=== PATIENT | female | born 1980 | race Caucasian/White ===

== ENCOUNTER 2019-06-26 19:45 | Emergency (ER) | payer MEDICAID ==
[~2019-06-26] VITALS: Ht 149.9 cm; Wt 61.7 kg
[~2019-06-26 19:45] MED LIST: ACET-6134 PO
[2019-06-26 20:04] VITALS: BP 118/60
--- NOTE | 2019-06-26 20:04 | NUR ---
38 Y/O FEMALE C/O LOWER BACK PAIN. DIFFICULTY BREATHING; NO SOB/RESPIRATORY DISTRESS NOTED 97% ROOM AIR 18RR. CLEAR LUNG SOUNDS BILATERALLY (ANT/POST). LOWE BACK PAIN 5/10 NONRADIATING. DENIES N/V/D OR FEVER/CHILLS. ERMD MADE AWARE OF STATUS. VSS. WILL CONTINUE TO MONITOR. PMH:PULMONARY BLOOD CLOTS RX: ENOXAPARIN NKDA
--- NOTE | 2019-06-26 20:04 | NUR ---
PT AMBULATED TO BED #12
[2019-06-26 21:12] LABS: BILIRUBIN,URINE NEGATIVE (NEGATIVE); BLOOD, URINE TRACE-I (NEGATIVE); COLOR,URINE YELLOW (YELLOW); LEUKOCYTE ESTERASE ,URINE 2+ (NEGATIVE); NITRITE, URINE NEGATIVE (NEGATIVE); UGLUCOSE NEGATIVE (NEGATIVE)
[2019-06-26 21:15] LABS: APPEARANCE,URINE HAZY (CLEAR)
[2019-06-26 21:20] LABS: RBC,URINE 0-5 /HPF (0-5)
[2019-06-26 22:08] VITALS: BP 127/68
== END 2019-06-26 22:08 | disposition home or self-care (01) ==
LOC: MED 19:45
DX: O23.42 Unspecified infection of urinary tract in pregnancy, second trimester (principal); O26.892 Other specified pregnancy related conditions, second trimester; M54.9 Dorsalgia, unspecified; Z3A.23 23 weeks gestation of pregnancy; Z98.890 Other specified postprocedural states; Z79.899 Other long term (current) drug therapy
CPT/HCPCS: 81001; 87086; 99283

== ENCOUNTER 2019-12-22 19:35 | Inpatient (IN) | payer MEDICAID, SELFPAY ==
[~2019-12-22] VITALS: Ht 149.9 cm; Wt 59.0 kg
[2019-12-22 19:41] VITALS: BP 121/85
--- NOTE | 2019-12-22 19:49 | NUR ---
PT AMBUALTED TO CHAIR C WITH STEADY GAIT
--- NOTE | 2019-12-22 20:00 | NUR ---
39F PRESENTS TO ED WITH C/O EPIGASTRIC PAIN THAT IS NON RADIATING X 7 HOURS. STATES THAT IT HAS ORIGINALLY STARTED A SMALL PAIN X 2 WEEKS AND HAS PROGRESSIVELY WORSEN. UPON ASSESMENT, PT A/O X4, GCS 15. CBL SOUNDS. RESPIRATIONS EVEN AND UNLABORED. ABDOMEN SOFT AND NONTENDER. +N/V. BOWEL SOUNDS NORMOACTIVE ON ALL QUADRANTS. PT PLACED FOR COMFORT IN [facility] WITH HOB ELEVATED. SAFETY PRECAUTIONS IN PLACE WITH BED LOWEST AND LOCKED, RAILS X 2. ERMD MADE AWARE OF PT STATUS. PMHX: 4 C/SECTION RX: DENIES NKA PT WEARING MASK. NEGATIVE FOR COVID SCREENING
[2019-12-22] MEDS ORDERED: DICYCLOMINE HCL LIQUID 20 MG, ALUMINUM HYD/MAG/SIMETHICONE 30 ML, LIDOCAINE VISCOUS 2% ... PO ONE ×3 (20:05)
[2019-12-22] MEDS ORDERED: KETOROLAC 30 MG/ML VIAL IM ONE (20:05)
[2019-12-22] MEDS ORDERED: LIDOCAINE VISCOUS 2% 20 ML UDC ONE (20:14)
[2019-12-22] MEDS ORDERED: ALUMINUM HYD/MAG/SIMETHICONE 30 ML UDC ONE (20:14)
[2019-12-22] MEDS ORDERED: DICYCLOMINE HCL LIQUID 10 MG/5 ML UDC ONE (20:14)
[2019-12-22 20:18] LABS: BASOPHILS # (AUTO) 0.1 K/uL (0.00-0.22); BASOPHILS % (AUTO) 0.5 % (0.0-2.0); EOSINOPHILS % (AUTO) 0.3 % (0.0-4.0); HEMATOCRIT 41.4 % (36-48); HEMOGLOBIN 13.5 g/dL (12.0-16.0); LYMPHOCYTES % (AUTO) 7.8 % (20.5-51.1); MEAN CORPUSCULAR HEMOGLOBIN 29 pg (27-31); MEAN CORPUSCULAR HGB CONC 33 g/dL (33-37); MEAN CORPUSCULAR VOLUME 88.4 fL (80-94); MONOCYTES # (AUTO) 0.3 K/uL (0.8-1.0); MONOCYTES % (AUTO) 2.6 % (1.7-9.3); NEUTROPHILS # (AUTO) 11.3 K/uL (1.8-7.7); NEUTROPHILS % (AUTO) 88.8 % (42.2-75.2); PLATELET COUNT (AUTO) 370 K/uL (140-450); RED BLOOD CELL COUNT(AUTO) 4.68 MIL/uL (4.20-5.40); RED CELL DISTRIBUTION WIDTH 15.3 % (11.6-13.7); WHITE BLOOD COUNT (AUTO) 12.7 K/uL (4.8-10.8)
--- NOTE | 2019-12-22 20:24 | NUR ---
PT MEDICATED WITH GI COCKTAIL. MEDICATED WITH TORADOL IM TOLERATED WELL. NADR
--- NOTE | 2019-12-22 20:26 | NUR ---
PT AMBULATED TO RESTROOM WITH STEADY GAIT.
[2019-12-22 20:33] LABS: ALBUMIN 4.2 g/dL (3.4-5.0); ANION GAP 14.2 (8-16); CARBON DIOXIDE 28.4 mmol/L (21-32); CREATININE 0.8 mg/dL (0.6-1.3); POTASSIUM 3.6 mmol/L (3.5-5.1); TOTAL BILIRUBIN 3.4 mg/dL (0.0-1.0)
--- NOTE | 2019-12-22 20:36 | NUR ---
PT TAKEN TO ULTRASOUNDS VIA W/C
--- NOTE | 2019-12-22 20:49 | NUR ---
PT RETURNED FROM US.
[2019-12-22] MEDS ORDERED: KETOROLAC 30 MG/ML VIAL IVP ONE (21:00)
[2019-12-22] MEDS ORDERED: NACL 0.9% 2,000 ML IV ONE (21:25)
[2019-12-22 21:26] LABS: PROTHROMBIN TIME 9.9 secs (10.8-13.4)
[2019-12-22] MEDS ORDERED: HYDROcodone/APAP 7.5/325 MG 1 TAB PO PRN (21:35)
[2019-12-22] MEDS ORDERED: ONDANSETRON 4 MG/2 ML VIAL IVP PRN (21:35)
[2019-12-22] MEDS ORDERED: ACETAMINOPHEN 325 MG TAB PO PRN (21:35)
[2019-12-22] MEDS ORDERED: cefTRIAXone 1,000 MG VIAL ONE (21:46)
[2019-12-22 22:06] LABS: APPEARANCE,URINE CLEAR (CLEAR); BILIRUBIN,URINE 2+ (NEGATIVE); BLOOD, URINE 2+ (NEGATIVE); COLOR,URINE DARK YELLOW (YELLOW); LEUKOCYTE ESTERASE ,URINE TRACE (NEGATIVE); NITRITE, URINE NEGATIVE (NEGATIVE); UGLUCOSE TRACE (NEGATIVE)
[2019-12-22 22:10] LABS: FREE T4 (FREE THYROXINE) 1.12 ng/dL (0.76-1.46); PHOSPHORUS 3.4 mg/dL (2.5-4.9); THYROID STIMULATING HORMONE 0.86 uIU/mL (0.34-3.74)
[2019-12-22 22:26] LABS: RBC,URINE 11-20 (MOD) /HPF (0-5)
[2019-12-22 22:29] LABS: HYALINE CASTS, URINE 0-10 /LPF (None Seen)
[2019-12-22 22:38] LABS: BARBITURATE, URINE NEGATIVE ng/ml (NEG <=200); BENZODIAZEPINE, URINE NEGATIVE ng/mL (NEG <=200)
[2019-12-22 22:39] LABS: CANNABINOID, URINE NEGATIVE ng/mL (NEG <=50); COCAINE, URINE NEGATIVE ng/mL (NEG <=300); OPIATE, URINE NEGATIVE ng/mL (NEG <=2000); PHENCYCLIDINE SCREEN,URINE NEGATIVE ng/mL (NEG <=25)
--- NOTE | 2019-12-22 22:53 | NUR ---
PATIENT AMBULATED TO THE RESTROOM WITH STEADY GAIT.
[2019-12-22] MEDS ORDERED: DEXT 5% / NACL 0.45% 1,000 ML IV ONE (23:25)
[2019-12-22] MEDS ORDERED: IBUPROFEN 400 MG TAB PO PRN (23:50)
--- NOTE | 2019-12-23 00:05 | NUR ---
PT IN BED SLEEPING. VISIBLE CHEST RISE AND FALL. NO FURTHER NEEDS AT THIS TIME.
--- NOTE | 2019-12-23 00:48 | NUR ---
D5 1/2 NS 1L STARTED AT 0045 RUNNING 100CC/HR. NO FURTHER NEEDS AT THIS TIME. CALL LIGHT WITHIN REACH
--- NOTE | 2019-12-23 01:52 | NUR ---
ARLENE ASTUDILLO AT BED SPEAKING TO PT MOTHER.
--- NOTE | 2019-12-23 03:00 | NUR ---
pt reports 7/10 abdominal pain. admitting doctor made aware.
[2019-12-23] MEDS ORDERED: MORPHINE SULFATE 2 MG/ML SYR ONE (03:06)
--- NOTE | 2019-12-23 03:12 | NUR ---
pt medicated with morphine 2mg ivp per admitting Dr. sanabria.
--- NOTE | 2019-12-23 03:13 | NUR ---
pt ambulated to restroom with steady gait.
--- NOTE | 2019-12-23 03:14 | NUR ---
pt requests for manual breast pump from [facility]. [facility] contacted.
--- NOTE | 2019-12-23 03:21 | NUR ---
provided manual breast pump for pt.
[2019-12-23] MEDS: MORPHINE SULFATE 2 MG/ML SYR IVP PRN (03:55)
[2019-12-23] MEDS ORDERED: AMPICILLIN/SULBACTAM 3 GM VIAL ONE (03:59)
[2019-12-23] MEDS: AMPICILLIN/SULBACTAM 3 GM in NACL 0.9% 100 ML IV SCH ×5 (04:13→23:38)
--- NOTE | 2019-12-23 05:41 | NUR ---
PT EPISODE OF VOMIT X 2. 200CC OBSERVED.
[2019-12-23 06:22] LABS: HEMATOCRIT 38.6 % (36-48); HEMOGLOBIN 12.5 g/dL (12.0-16.0); MEAN CORPUSCULAR HEMOGLOBIN 29 pg (27-31); MEAN CORPUSCULAR HGB CONC 32 g/dL (33-37); MEAN CORPUSCULAR VOLUME 88.7 fL (80-94); PLATELET COUNT (AUTO) 263 K/uL (140-450); RED BLOOD CELL COUNT(AUTO) 4.35 MIL/uL (4.20-5.40); RED CELL DISTRIBUTION WIDTH 15.4 % (11.6-13.7); WHITE BLOOD COUNT (AUTO) 12.6 K/uL (4.8-10.8)
[2019-12-23 06:35] LABS: ALBUMIN 3.3 g/dL (3.4-5.0); ANION GAP 15.1 (8-16); CARBON DIOXIDE 24.3 mmol/L (21-32); CREATININE 0.7 mg/dL (0.6-1.3); MAGNESIUM 1.7 mg/dL (1.8-2.4); PHOSPHORUS 3.1 mg/dL (2.5-4.9); POTASSIUM 3.4 mmol/L (3.5-5.1); TOTAL BILIRUBIN 5.5 mg/dL (0.0-1.0)
[2019-12-23 06:37] LABS: CHOL/HDL RATIO 2.5 (1-4.5)
[2019-12-23 06:47] LABS: BASOPHILS % (MANUAL) 0 % (0-2); EOSINOPHILS % (MANUAL) 0 % (0-4); LYMPHOCYTES % (MANUAL) 4 % (20-46); MONOCYTES % (MANUAL) 3 % (5-12)
[2019-12-23 07:05] VITALS: BP 118/75
--- NOTE | 2019-12-23 07:05 | NUR ---
Patient will be admitted to care of dr hernandez. Admited to MS. Will go to room 125A. Belongings list completed. Report to KARUNA GREER .
--- NOTE | 2019-12-23 07:05 | NUR ---
RECEIVED PATIENT FROM ED NURSE VIA WHEELCHAIR. PATIENT IS DROWSY BUT ALERT ORIENTED X4. RESP EVEN AND UNLABORED ON ROOM AIR. LFA 18 NOTED IVF D5 1/2NS AT 100ML/HR. SKIN IS INTACT. VITALS 98.4 111 20 118/75 98% RA. PATIENT C/O PAIN TO EPIGASTRIC AREA ON SCALE 6/10. WILL ASSESS FURTHER TO MEDICATE APPROPRIATELY. SKIN IS INTACT. PATIENT ABLE TO AMBULATE WITH STEADY GAIT FROM WHEELCHAIR TO BED. PATIENT IS ORIENTED TO ENVIRONMENT AND CALL LIGHT. BED IN LOW POSITION. STANDARD PRECAUTION OBSERVE. MRSA COLLECTED. WILL CONTINUE TO MONITOR.
[2019-12-23] MEDS ORDERED: MAGNESIUM OXIDE 400 MG TAB PO PRN (08:30)
[2019-12-23] MEDS ORDERED: POTASSIUM CHLORIDE 10 MEQ TABER PO PRN (08:30)
[2019-12-23] MEDS: DOCUSATE SODIUM 100 MG GELCAP PO SCH ×2 (08:31→21:30)
[2019-12-23] MEDS: KETOROLAC 30 MG/ML VIAL IM PRN (08:52)
--- NOTE | 2019-12-23 09:00 | NUR ---
MORNING ROUTINE MEDICATIONS GIVEN ORDERED. KDUR AND MAG OXIDE GIVEN FOR POTASSIUM 3.4 AND MAG 1.7 RESPECTIVELY. TORADOL IM GIVEN PER REQUEST FOR PAIN OF 12/27. PATIENT IS ALERT AND AWAKE. AMBULATORY WITH STEADY GAIT. CALL LIGHT WITHIN REACH. WILL CONTINUE TO MONITOR.
--- NOTE | 2019-12-23 11:50 | NUR ---
RECEIVED ORDER FROM DR SHERIDAN FOR COVID SWAB. ORDER CARRIED OUT. COVID SWAB COLLECTED AND SENT OUT WITH MORNING RUN.
[2019-12-23] MEDS ORDERED: ONDANSETRON 4 MG/2 ML VIAL IVP PRN (12:10)
[2019-12-23] MEDS ORDERED: MEPERIDINE 25 MG/ML SYR IVP PRN (12:10)
[2019-12-23] MEDS ORDERED: HYDROmorphone 1 MG/ML AMP IVP PRN (12:10)
--- NOTE | 2019-12-23 12:37 | NUR ---
PATIENT LEFT TO OR FOR ERCP. PATIENT LEFT IN STABLE CONDITION.
[2019-12-23] MEDS ORDERED: ESMOLOL 100 MG/10 ML VIAL IV ONE (12:42)
[2019-12-23] MEDS ORDERED: DEXAMETHASONE 4 MG/ML VIAL ONE (12:42)
[2019-12-23] MEDS ORDERED: ONDANSETRON 4 MG/2 ML VIAL ONE (12:42)
[2019-12-23] MEDS ORDERED: ROCURONIUM 50 MG/5 ML VIAL IV ONE (12:42)
[2019-12-23] MEDS ORDERED: SUCCINYLCHOLINE CHLORIDE 200 MG/10 ML VIAL IVP ONE (12:42)
[2019-12-23] MEDS ORDERED: DESFLURANE 240 ML BTL INH ONE (12:42)
--- NOTE | 2019-12-23 14:50 | NUR ---
PATIENT CAME BACK FROM OR PROCEDURE. PATIENT IS AWAKE AND ALERT. RESP EVEN AND UNLABORED. TEMPERATURE AT 100 F, COOLING MEASURES PROVIDED. HR 121 RR 20 BP 96/58 WITH 100% O2SAT. DR BOSS MADE AWARE. RECEIVED ORDER FOR NS BOLUS OF 500ML. ORDER CARRIED OUT. NO NOTED DISTRESS AT THIS TIME. WILL CONTINUE TO MONITOR.
[2019-12-23] MEDS ORDERED: NACL 0.9% 500 ML IV SCH (15:15)
--- NOTE | 2019-12-23 17:50 | NUR ---
VITALS IMPROVED 98.9 96 18 103/66 100% ON ROOM AIR. RESP EVEN AND UNLABORED. PATIENT STATED SHE DOESNT WANT TO BREAST PUMP WHILE SHE'S HERE. DENIES OF PAIN AT THIS TIME. CALL LIGHT WITHIN REACH. WILL CONTINUE TO MONITOR.
--- NOTE | 2019-12-23 18:52 | NUR ---
PATIENT IS SCHEDULED FOR LAPAROSCOPIC /POSSIBLE OPEN CHOLECYSTECTOMY POSSIBLE CHOLANGIOGRAM AND POSSIBLE EXPLORATORY LAPAROTOMY WITH POSSIBLE BLOOD TRANFUSION TOMORROW @[address] SHERIDAN. PATIENT IS NPO AFTER MIDNIGHT. PATIENT VERBALIZED UNDERSTANDING.
--- NOTE | 2019-12-23 19:15 | NUR ---
ENDORSED PATIENT TO NIGHT NURSE. PATIENT IN STABLE CONDITION.
--- NOTE | 2019-12-23 19:16 | NUR ---
RECD. SITTING ON BED, AWAKE, A/OX4. RESPIRATION EVEN AND UNLABORED. IV OF NS AT TKO INFUSING, LEFT FOREARM G18. INDEPENDENT, AMBULATORY TO THE BATHROOM. PAIN IN THE ABDOMEN 1/10, STATED TOLERABLE. WILL CALL IF THE PAIN INCREASES. PLAN OF CARE FOR THE SHIFT DISCUSSED. VERBALIZED UNDERSTANDING. DENIES PAIN 0/10.
--- NOTE | 2019-12-23 20:00 | NUR ---
Patient's Plan of Care was discussed and reviewed with COMMUNICATIONS TECHNOLOGIST: NARAYAN CHATTERJEE
--- NOTE | 2019-12-23 22:00 | NUR ---
AMBULATED TO BR TO VOID. GAIT STEADY.
--- NOTE | 2019-12-23 23:40 | NUR ---
BRAIN WAVE TECHNICIAN PAYTON CALLED, PATIENT IS NEGATIVE FOR COVID.
[2019-12-24] VITALS: BP 102/61
--- NOTE | 2019-12-24 | NUR ---
NOTHING BY MOUTH PAST MIDNIGHT. VERBALIZED UNDERSTANDING.
[2019-12-24] MEDS: DEXT 5% / NACL 0.9% 500 ML IV SCH ×2 (00:01→05:55)
[2019-12-24] MEDS: KETOROLAC 30 MG/ML VIAL IM PRN (00:02)
[2019-12-24 06:34] LABS: BASOPHILS % (AUTO) 0.2 % (0.0-2.0); EOSINOPHILS % (AUTO) 0.1 % (0.0-4.0); HEMATOCRIT 32.5 % (36-48); HEMOGLOBIN 10.8 g/dL (12.0-16.0); LYMPHOCYTES # (AUTO) 1.1 K/uL (2.5-16.5); LYMPHOCYTES % (AUTO) 6.1 % (20.5-51.1); MEAN CORPUSCULAR HEMOGLOBIN 29 pg (27-31); MEAN CORPUSCULAR HGB CONC 33 g/dL (33-37); MEAN CORPUSCULAR VOLUME 88.1 fL (80-94); MONOCYTES # (AUTO) 1.2 K/uL (0.8-1.0); MONOCYTES % (AUTO) 6.3 % (1.7-9.3); NEUTROPHILS # (AUTO) 16.3 K/uL (1.8-7.7); NEUTROPHILS % (AUTO) 87.3 % (42.2-75.2); PLATELET COUNT (AUTO) 223 K/uL (140-450); RED BLOOD CELL COUNT(AUTO) 3.69 MIL/uL (4.20-5.40); RED CELL DISTRIBUTION WIDTH 15.7 % (11.6-13.7); WHITE BLOOD COUNT (AUTO) 18.7 K/uL (4.8-10.8)
[2019-12-24] MEDS: AMPICILLIN/SULBACTAM 3 GM in NACL 0.9% 100 ML IV SCH ×2 (06:46→11:55)
--- NOTE | 2019-12-24 06:57 | NUR ---
UNASYN IV GIVEN ORDERED. NO A/R NOTED. TOLERATED WELL.
[2019-12-24 07:11] LABS: ALBUMIN 2.5 g/dL (3.4-5.0); ANION GAP 9.5 (8-16); CARBON DIOXIDE 24.8 mmol/L (21-32); CREATININE 0.7 mg/dL (0.6-1.3); POTASSIUM 3.3 mmol/L (3.5-5.1); TOTAL BILIRUBIN 3.3 mg/dL (0.0-1.0)
--- NOTE | 2019-12-24 07:20 | NUR ---
RESTING COMFORTABLY IN BED. CONDITION REMAIN STABLE. ENDORSED TO AM SHIFT NURSE FOR CONTINUITY OF CARE.
--- NOTE | 2019-12-24 07:21 | NUR ---
RECEIVED REPORT FROM BUILDING INSULATION SUPERVISOR NURSE ARVIN. PT RESTING IN BED, AOX4-RWANDAN SPEAKING, ON ROOM AIR WITH LEFT FA #28G RUNNING D5/NS @80ML/HR. DISCUSSED PLAN OF CARE AND PT VERBALIZED UNDERSTANDING. CALL LIGHT WITHIN REACH. NO S/S OF RESPIRATORY DISTRESS OR DISCOMFORT NOTED AT THIS TIME. WILL CONTINUE TO MONITOR.
[2019-12-24] MEDS: DEXT 5% /NACL 0.9% 1,000 ML IV SCH ×2 (07:44→19:55)
[2019-12-24 08:00] VITALS: BP 104/73
[2019-12-24] MEDS ORDERED: cefTRIAXone 2,000 MG in DEXTROSE 5% 100 ML IV SCH (09:00)
[2019-12-24] MEDS: DOCUSATE SODIUM 100 MG GELCAP PO SCH ×2 (09:35→22:21)
--- NOTE | 2019-12-24 09:35 | NUR ---
SCHEDULED MEDICATION COLACE GIVEN AND TOLERATED WELL. CALL LIGHT WITHIN REACH. NO S/S OF RESPIRATORY DISTRESS OR DISCOMFORT NOTED AT THIS TIME. WILL CONTINUE TO MONITOR.
--- NOTE | 2019-12-24 09:35 | NUR ---
PATIENT HAS BEEN SCREENED AND CATEGORIZED LOW NUTRITION RISK. PATIENT WILL BE SEEN WITHIN 7 DAYS OF ADMISSION. 12/29/[address]
[2019-12-24] MEDS ORDERED: BENZOCAINE/MENTHOL 1 LOZ MM PRN (10:20)
--- NOTE | 2019-12-24 11:13 | NUR ---
PT C/O SORE THROAT S/P ERCP WITH DR. SNEED 12/23/2019 WHERE X3 STONES REMOVED. SPOKE WITH DR. ELDRIDGE AND WAS GIVEN NEW ORDER OF CEPACOL. MEDICATION GIVEN TO PT AND TOLERATED WELL. CALL LIGHT WITHIN REACH. NO S/S OF RESPIRATORY DISTRESS OR DISCOMFORT NOTED AT THIS TIME. WILL CONTINUE TO MONITOR.
--- NOTE | 2019-12-24 11:55 | NUR ---
SCHEDULED MEDICATION UNASYN GIVEN AND TOLERATED WELL. CALL LIGHT WITHIN REACH. NO S/S OF RESPIRATORY DISTRESS OF DISCOMFORT NOTED AT THIS TIME. WILL CONTINUE TO MONITOR.
--- NOTE | 2019-12-24 12:35 | NUR ---
NEW IV SITE LEFT FA #22G AFTER 2ND ATTEMPT. PT TOLERATED WELL. OTHER IV SITE D/C AFTER PT C/O PAIN AND IRRITATION. CANNULA INTACT. CALL LIGHT WITHIN REACH. NO S/S OF RESPIRATORY DISTRESS OF DISCOMFORT NOTED AT THIS TIME. WILL CONTINUE TO MONITOR.
--- NOTE | 2019-12-24 13:26 | NUR ---
SUPERVISOR LUMP ROOM NOTE: Patient's Orientation Person Situation Place Time Information Provided By AUBREY VU Comments SW WAS UNABLE TO MEET PATIENT AT BEDSIDE DUE TO MEDICAL CONDITION. Production Machine Computer Operator, Realtionship and Phone Number AUBREY SCHRADER [phone] [facility] Power of Frame Pulley Mortising Machine Operator No Does Patient Have a POLST No Identifying Problems No Social Work Triggers Is A Social Work Consult Needed No Mandate Report Filed No Explanation Of Identifying Problems PATIENT IS A 39-YEAR-OLD FEMALE ADMITTED FOR CHOLEDOCHOLITHIASIS. PATIENT HAS PMHX OF PULMONARY EMBOLISM. Admitted From Home Pre-Admission Level Of Functioning Status Independent/Ambulatory Prior Resources/Services Used In Last 12 Months No Prior Resources Used Prior DME No Prior DME Used Living Situation Apartment Lives With Family Patient Had Caregiver No Home Support No Caregiver Issues Financial Issues No Known Financial Issue Referral To The Financial Counselor Needed No Factors/Needs No D/C Needs Identified Pt/Rep Participated In Discharge Plan Yes Patient/Family Agress With Discharge Plan Yes Discharge Plan Comments TENTATIVE DISCHARGE PLAN IS FOR PATIENT TO RETURN HOME. DC Plan Status Initiated
--- NOTE | 2019-12-24 14:00 | NUR ---
PT RESTING IN BED. CALL LIGHT WITHIN REACH. NO S/S OF RESPIRATORY DISTRESS OR DISCOMFORT NOTED AT THIS TIME. WILL CONTINUE TO MONITOR.
[2019-12-24] MEDS ORDERED: LACTATED RINGERS 1,000 ML IV SCH (15:13)
[2019-12-24] MEDS ORDERED: MEPERIDINE 25 MG/ML SYR IVP PRN (15:15)
[2019-12-24] MEDS ORDERED: ONDANSETRON 4 MG/2 ML VIAL IVP PRN (15:15)
[2019-12-24] MEDS ORDERED: HYDROmorphone 1 MG/ML AMP IVP PRN (15:15)
--- NOTE | 2019-12-24 15:49 | NUR ---
PT LEFT TO OR IN STABLE CONDITION.
[2019-12-24] MEDS ORDERED: BUPIVACAINE-MPF/EPI 0.25% 10 ML VIAL INJ ONE (16:15)
[2019-12-24] MEDS ORDERED: DEXAMETHASONE 4 MG/ML VIAL ONE (16:20)
[2019-12-24] MEDS ORDERED: ROCURONIUM 50 MG/5 ML VIAL IV ONE (16:20)
[2019-12-24] MEDS ORDERED: SUGAMMADEX SODIUM 200 MG/2 ML VIAL IV ONE (16:20)
[2019-12-24] MEDS ORDERED: SEVOFLURANE 250 ML BTL INH ONE (16:20)
[2019-12-24] MEDS ORDERED: PROPOFOL 200 MG/20 ML VIAL IV ONE (16:20)
[2019-12-24] MEDS ORDERED: ONDANSETRON 4 MG/2 ML VIAL ONE (16:20)
[2019-12-24] MEDS ORDERED: POTASSIUM CHLORIDE 10 MEQ TABER PO SCH (17:30)
[2019-12-24] MEDS: HYDROmorphone PFS 2 MG/ML SYR ONE ×2 (18:25→18:35)
--- NOTE | 2019-12-24 19:00 | NUR ---
PT ARRIVED BACK FROM OR. FIRST VITAL SIGNS POST OP TAKEN AND CHARTED. INCENTIVE SPIROMETER GIVEN AND EDUCATION GIVEN. PT VERBALIZED UNDERSTANDING. Addendum: 12/24/19 at 2013 by Chacha El RN Tayler LIZAMA BY DR. OLSON. X4 ABDOMINAL INCISIONS CLOSED WITH DERMABOND- FELICIANO.
--- NOTE | 2019-12-24 19:10 | NUR ---
ENDORSED PT CARE TO CIVIL DIVISION DEPUTY SHERIFF NURSE MARKO FOR CONTINUITY OF CARE. PT IN STABLE CONDITION AT THIS TIME. Addendum: 12/24/19 at 2012 by Chacha El RN NURSE CAVANAUGH AWARE TO GIVE ESTEFANÍA 40MEQ/4 TABLES.
--- NOTE | 2019-12-24 19:11 | NUR ---
RECEIVED REPORT FROM DAYSILFT NURSE, FOR CONTINUITY OF CARE. AA&OX4; IRAQI SPEAKING. RESPIRATIONS ARE EVEN AND UNLABORED, BREATHING TO ROOM AIR. LFA 22G IV, IS PATENT AND INTACT, AND RUNNING PER ORDERS. PT IS S/P LAP CHOLEDO. LIQUID DIET TO START TOMORROW (12/25/2019). INCENTIVE SPIROMETER AT BEDSIDE. REVIEWED PLAN OF CARE. SAFETY MEASURES IN PLACE; CALL LIGHT WITHIN REACH, BED IN LOW POSITION. NO ACUTE DISTRESS NOTED. WILL CONTINUE TO MONITOR.
--- NOTE | 2019-12-24 19:12 | NUR ---
FOUR SMALL ABDOMINAL INCISIONS S/P CHOLEDO, COVERED WITH DERMABOND, NOTED. NO SIGNS OF INFECTION OBSERVED.
[2019-12-24] MEDS: MORPHINE SULFATE 2 MG/ML SYR IVP PRN (22:18)
--- NOTE | 2019-12-24 22:18 | NUR ---
SCHEDULED MEDICATIONS GIVEN, WITH MEDICATION EDUCATION PROVIDED. PT TOLERATED PO MED WELL. PT COMPLAINS OF 7/10 ABDOMINAL PAIN, IVP MORPHINE ADMINISTERED. WILL REASSESS PAIN. IVPB ABX HUNG, AND RUNNING ORDERED. UNABLE TO ADMINISTER PO POTASSIUM, MEDICATION HAS TIMED OUT, WILL NOTIFY DOCTOR. SAFETY MEASURES IN PLACE. NO ACUTE DISTRESS NOTED. WILL CONTINUE TO MONITOR.
[2019-12-24] MEDS: PIPERACILLIN/TAZOBACTAM 3.375 GM in DEXTROSE 5% 50 ML IV SCH (22:25)
[2019-12-24] MEDS ORDERED: POTASSIUM CHLORIDE 10 MEQ TABER PO ONE (22:45)
--- NOTE | 2019-12-24 23:17 | NUR ---
ORDERED PO POTASSIUM GIVEN, WITH MEDICATION EDUCATION PROVIDED. PT TOLERATED PO MED WELL. SAFETY MEASURES IN PLACE. NO DISTRESS NOTED. WILL CONTINUE TO MONITOR.
[2019-12-25] VITALS: BP 129/87
[2019-12-25] MEDS: MORPHINE SULFATE 2 MG/ML SYR IVP PRN ×3 (03:41→13:23)
--- NOTE | 2019-12-25 03:41 | NUR ---
ASSISTED PT TO AMBULATE TO THE BATHROOM, AND BACK TO BED. IV FLUIDS RUNNING, ORDERED. PT COMPLAINS OF ABDOMINAL PAIN; IVP MORPHINE ADMINISTERED. WILL REASSESS PAIN. MO ACUTE DISTRESS NOTED. WILL CONTINUE TO MONITOR.
[2019-12-25] MEDS: PIPERACILLIN/TAZOBACTAM 3.375 GM in DEXTROSE 5% 50 ML IV SCH ×3 (06:31→20:58)
[2019-12-25 06:35] LABS: ALBUMIN 2.7 g/dL (3.4-5.0); ANION GAP 13.1 (8-16); CARBON DIOXIDE 25.8 mmol/L (21-32); CREATININE 0.6 mg/dL (0.6-1.3); POTASSIUM 3.9 mmol/L (3.5-5.1); TOTAL BILIRUBIN 1.5 mg/dL (0.0-1.0)
[2019-12-25 06:51] LABS: BASOPHILS % (AUTO) 0.1 % (0.0-2.0); HEMOGLOBIN 10.7 g/dL (12.0-16.0); LYMPHOCYTES # (AUTO) 1.1 K/uL (2.5-16.5); LYMPHOCYTES % (AUTO) 7.1 % (20.5-51.1); MEAN CORPUSCULAR HEMOGLOBIN 29 pg (27-31); MEAN CORPUSCULAR HGB CONC 33 g/dL (33-37); MEAN CORPUSCULAR VOLUME 88.4 fL (80-94); MONOCYTES # (AUTO) 0.7 K/uL (0.8-1.0); MONOCYTES % (AUTO) 4.4 % (1.7-9.3); NEUTROPHILS # (AUTO) 13.6 K/uL (1.8-7.7); NEUTROPHILS % (AUTO) 88.4 % (42.2-75.2); PLATELET COUNT (AUTO) 240 K/uL (140-450); RED BLOOD CELL COUNT(AUTO) 3.73 MIL/uL (4.20-5.40); RED CELL DISTRIBUTION WIDTH 15.5 % (11.6-13.7); WHITE BLOOD COUNT (AUTO) 15.4 K/uL (4.8-10.8)
--- NOTE | 2019-12-25 07:29 | NUR ---
GAVE REPORT TO DAYSHIFT NURSE FOR CONTINUITY OF CARE. PT IS IN STABLE CONDITION.
--- NOTE | 2019-12-25 07:30 | NUR ---
RECEIVED PATIENT FROM NIGHT NURSE. PATIENT IS AWAKE AND ALERT. RESP EVEN AND UNLABORED ON ROOM AIR. LFA 18 IVF D5NS 80ML/HR. PLAN OF CARE DISCUSSED WITH PATIENT. PATIENT VERBALIZED UNDERSTANDING. CALL LIGHT WITHIN REACH. BED IN LOW POSITION. WILL CONTINUE WITH CARE.
[2019-12-25 08:00] VITALS: BP 119/76
[2019-12-25] MEDS: DEXT 5% /NACL 0.9% 1,000 ML IV SCH ×2 (08:25→16:10)
[2019-12-25] MEDS: DOCUSATE SODIUM 100 MG GELCAP PO SCH ×2 (08:44→20:57)
--- NOTE | 2019-12-25 08:50 | NUR ---
MORNING ROUTINE MEDICATIONS GIVEN. PATIENT TOLERATED WELL. MORPHINE GIVEN PRN REQUESTED FOR PAIN TO ABD. VITALS 98.1 86 16 119/76 96% ON ROOM AIR. DR AMBROSE SPOKE WITH PATIENT ABOUT HER PLAN OF CARE. BLOOD CULTURE SENSITIVITY IS PENDING FOR PROPER ABTX ADMINISTRATION. PATIENT VERBALIZED UNDERSTANDING. PATIENT TEACHING PROVIDED ON I/S AND PATIENT IS ENCOURAGED TO AMBULATE TODAY. BOWEL SOUNDS HYPOACTIVE ON ALL QUADRANTS. PATIENT DENIES OF FLATUS AT THIS TIME. AMBULATION ENCOURAGED. PATIENT VERBALIZED UNDERSTANDING. CALL LIGHT WITHIN REACH. WILL CONTINUE TO MONITOR.
[2019-12-25] MEDS ORDERED: DOCU-299 PO (10:37)
[2019-12-25] MEDS ORDERED: BENZ1LOZ93 MM (10:37)
--- NOTE | 2019-12-25 13:30 | NUR ---
PATIENT IS IN BED WITH FACIAL GRIMACE, REQUESTING FOR PAIN MEDICATION. SEVERE PAIN TO ABDOMEN ON SCALE 8/10. PATIENT RECEIVED MORPHINE PRN. VITALS 129/89 HR 75. RESP EVEN AND UNLABORED ON ROOM AIR. WILL REASSESS FOR EFFECTIVENESS. CALL LIGHT WITHIN REACH. WILL CONTINUE TO MONITOR.
--- NOTE | 2019-12-25 14:35 | NUR ---
MORPHINE IS EFFECTIVE. PAIN REDUCED TO TOLERABLE LEVEL. PATIENT IS RESTING COMFORTABLY IN BED. WILL CONTINUE TO MONITOR.
--- NOTE | 2019-12-25 15:54 | NUR ---
DISCHARGE PLANNING: POST OP #1. PER DR RAZO, PATIENT IS NOT READY FOR DC YET. WBC IS ELEVATED 15.4. BLOOD CULTURES CAME BACK POSITIVE FOR CITROBACTER FREUNDII. WILL FOLLOW UP WITH ID Addendum: 12/26/19 at 1146 by Annemarie Aguilar CM THIS IS A 39 Y/O FEMALE PATIENT FROM HOME, WHO CAME IN DUE TO ABDOMINAL PAIN. PAST MEDICAL HISTORY INCLUDE PULMONARY EMBOLISM FROM . INITIAL DIAGNOSIS OF CHOLEDOCHOLITHIASIS. CURRENT LABS INCLUDE WBC 8.6, H/H 9.8/29.7, CHEM 7 WNL AND ALB 2.7. ON ZOSYN. DC PLAN PLAN BACK TO HOME ONCE STABLE. Addendum: 12/26/19 at 1147 by Annemarie Aguilar CM FOR DISCHARGE TODAY.
[2019-12-25 16:00] VITALS: BP 117/76
--- NOTE | 2019-12-25 19:00 | NUR ---
BLOOD CULTURE SENSITIVITY RESULT. ENDORSED TO NIGHT NURSE TO NOTIFY MD. PATIENT IS TAKING ZOSYN.
--- NOTE | 2019-12-25 19:05 | NUR ---
RECEIVED BEDSIDE REPORT FROM DAY SHIFT NURSE. PT IS AWAKE AND ALERT. IN STABLE CONDITION. ON RA AND RESPIRATIONS ARE UNLABORED. PT DENIES PAIN AT THIS TIME. IV IS IN THE LEFT FOREARM 22 GAUGE RUNNING D5NS AT 80 ML PER HOUR PER DOCTOR ORDER. SKIN IS WARM AND DRY. FOUR INCISIONS ON THE UPPER AND LOWER ABD S/P SURGERY FOR CHOLEDOCHOLITHIASIS. BED IS IN LOWEST POSITION AND CALL LIGHT IS WITHIN REACH. PLAN OF CARE WAS DISCUSSED.
--- NOTE | 2019-12-25 19:24 | NUR ---
ENDORSED PATIENT TO NIGHT NURSE. PATIENT IN STABLE CONDITION.
--- NOTE | 2019-12-25 19:51 | NUR ---
BLOOD CULTURE CAME BACK BACTEREMIA SENSITIVE. NOTIFIED RESIDENT PHYSICIAN FOR DR. GANN. WILL CONTINUE WITH ZOSYN ANTIBIOTIC ORDERED.
[2019-12-25] MEDS: HYDROcodone/APAP 5/325 MG 1 TAB TAB PO PRN (20:57)
--- NOTE | 2019-12-25 20:57 | NUR ---
PT COMPLAINS OF PAIN IN HER ABDOMINAL AREA WHERE THE INCISION SITES ARE S/P LAP CHOLEY. PT STATES PAIN AT A 6/10 WITH ACHING CHARACTERISTICS. PT WAS GIVEN 5/325 MG TAB OF NORCO. WILL CONTINUE TO MONITOR PT'S PAIN LEVEL.
--- NOTE | 2019-12-25 21:57 | NUR ---
PT STATES PAIN HAS IMPROVED. SHE RATES THE PAIN IN HER ABDOMEN AT A 2/10 AND VERBALIZES THE PAIN IS NOW MANAGEABLE. PT IS STABLE AT THIS TIME AND RESTING.
[2019-12-26] VITALS: BP 115/78
--- NOTE | 2019-12-26 | NUR ---
PT IS AWAKE AND SPEAKING TO FAMILY ON THE PHONE. PT IS COOPERATIVE AND POSITIVE. NO DISTRESS NOTED AND NO COMPLAINTS OF PAIN. WILL CONTINUE TO MONITOR.
--- NOTE | 2019-12-26 02:07 | NUR ---
PT IS ASLEEP WITH NO DISTRESS NOTED. BREATHING IS UNLABORED AND EVEN. PT IS LAYING IN SEMI FOWLERS POSITION AND NO APPARENT SIGNS OF PAIN. CALL LIGHT IS WITHIN REACH AND SAFETY PRECAUTIONS ARE IN PLACE. WILL CONTINUE TO MONITOR.
--- NOTE | 2019-12-26 03:59 | NUR ---
NO PAIN IS NOTED AT THIS TIME. PT RESTING IN BED WITH NO FACIAL GRIMACE. NO DRAINAGE FROM THE INCISION SITES. BREATHING IS UNLABORED AND PT IS IN STABLE CONDITION. WILL CONTINUE TO MONITOR.
[2019-12-26] MEDS: PIPERACILLIN/TAZOBACTAM 3.375 GM in DEXTROSE 5% 50 ML IV SCH ×2 (04:31→12:45)
[2019-12-26] MEDS: DEXT 5% /NACL 0.9% 1,000 ML IV SCH (04:41)
[2019-12-26 06:40] LABS: BASOPHILS % (AUTO) 0.4 % (0.0-2.0); EOSINOPHILS # (AUTO) 0.1 K/uL (0-0.4); EOSINOPHILS % (AUTO) 0.9 % (0.0-4.0); HEMATOCRIT 29.7 % (36-48); HEMOGLOBIN 9.8 g/dL (12.0-16.0); LYMPHOCYTES # (AUTO) 3.2 K/uL (2.5-16.5); LYMPHOCYTES % (AUTO) 36.5 % (20.5-51.1); MEAN CORPUSCULAR HEMOGLOBIN 29 pg (27-31); MEAN CORPUSCULAR HGB CONC 33 g/dL (33-37); MEAN CORPUSCULAR VOLUME 89.2 fL (80-94); MONOCYTES # (AUTO) 0.6 K/uL (0.8-1.0); MONOCYTES % (AUTO) 6.5 % (1.7-9.3); NEUTROPHILS # (AUTO) 4.8 K/uL (1.8-7.7); NEUTROPHILS % (AUTO) 55.7 % (42.2-75.2); PLATELET COUNT (AUTO) 232 K/uL (140-450); RED BLOOD CELL COUNT(AUTO) 3.33 MIL/uL (4.20-5.40); RED CELL DISTRIBUTION WIDTH 15.5 % (11.6-13.7); WHITE BLOOD COUNT (AUTO) 8.6 K/uL (4.8-10.8)
[2019-12-26 07:02] LABS: MAGNESIUM 1.8 mg/dL (1.8-2.4); PHOSPHORUS 2.6 mg/dL (2.5-4.9)
[2019-12-26 07:06] LABS: ANION GAP 10.7 (8-16); CARBON DIOXIDE 27.8 mmol/L (21-32); CREATININE 0.6 mg/dL (0.6-1.3); POTASSIUM 3.5 mmol/L (3.5-5.1)
--- NOTE | 2019-12-26 07:15 | NUR ---
BEDSIDE REPORT WAS GIVEN TO DAY SHIFT NURSE FOR CONTINUITY OF CARE. PT IS STABLE AT THIS TIME. NO SIGNS OF DISTRESS.
[2019-12-26] MEDS ORDERED: LACT1CAP59 PO (08:48)
[2019-12-26] MEDS ORDERED: IBUP-2213 PO (08:48)
[2019-12-26] MEDS ORDERED: SULF-59 PO (08:48)
[2019-12-26] MEDS ORDERED: HYDR-5122 PO (08:50)
[2019-12-26] MEDS: DOCUSATE SODIUM 100 MG GELCAP PO SCH (09:00)
[2019-12-26 11:16] VITALS: BP 124/78
[2019-12-26] MEDS: HYDROcodone/APAP 5/325 MG 1 TAB TAB PO PRN (12:46)
[2019-12-26 14:12] VITALS: BP 109/72
--- NOTE | 2019-12-26 15:25 | NUR ---
DISCHARGED PATIENT VIA WHEELCHAIR. BELONGINGS WITH PATIENT. PATIENT IS IN STABLE CONDITION.
== END 2019-12-26 15:25 | disposition home or self-care (01) | DRG 710 ==
LOC: MED 19:35 → EEVIPCON 21:31 → MMU 21:31
PROVIDERS: ADMIT General Practice; ATTEND General Practice
PROC: 0F798ZZ Dilation of Common Bile Duct, Via Natural or Artificial Opening Endoscopic (ICD-10-PCS; 2019-12-23)
PROC: BF101ZZ Fluoroscopy of Bile Ducts using Low Osmolar Contrast (ICD-10-PCS; 2019-12-23)
PROC: 0FCC8ZZ Extirpation of Matter from Ampulla of Vater, Via Natural or Artificial Opening Endoscopic (ICD-10-PCS; principal; 2019-12-23 12:00)
PROC: 0FT44ZZ Resection of Gallbladder, Percutaneous Endoscopic Approach (ICD-10-PCS; 2019-12-24)
DX: A41.50 Gram-negative sepsis, unspecified (principal); K85.10 Biliary acute pancreatitis without necrosis or infection; N39.0 Urinary tract infection, site not specified; D64.9 Anemia, unspecified; E87.6 Hypokalemia; K80.63 Calculus of gallbladder and bile duct with acute cholecystitis with obstruction; E43 Unspecified severe protein-calorie malnutrition; Z20.828 Contact with and (suspected) exposure to other viral communicable diseases; Z68.26 Body mass index [BMI] 26.0-26.9, adult; K80.10 Calculus of gallbladder with chronic cholecystitis without obstruction; B96.89 Other specified bacterial agents as the cause of diseases classified elsewhere
CPT/HCPCS: 36415; 74330; 76705; 80048; 80053; 80305; 81001; 81025; 82150; 83036; 83605; 83690; 83735; 83880; 84100; 84439; 84443; 84484; 85025; 85610; 85730; 86886; 86900; 86901; 87040; 87081; 87086; 87186; 88304; 96361; 96365; 96372; 96375; 99285; C1769; C1773; J0295; J0330; J0696; J1100; J1170; J1644; J1885; J2270; J2405; J2543; J2704; J3490; J7030; J7042; J7060; U0003-CS